=== PATIENT | male | born 1990 | race Caucasian/White ===

== ENCOUNTER 2024-10-20 06:02 | Emergency (ER) | payer SELFPAY ==
[~2024-10-20] VITALS: Ht 165.1 cm; Wt 76.7 kg
[2024-10-20 06:27] VITALS: TEMP 36.8; O2SAT 100
[2024-10-20] MEDS: TETRACAINE 0.5% OPHTH DROPS 4ML EACHEYE ONE (08:07)
[2024-10-20] MEDS: FLUORESCEIN SODIUM 1MG/STRIP BOTHEYE ONE (08:07)
[2024-10-20 08:41] VITALS: BP 122/94; PULSE 79; RESP 16; O2SAT 100
== END 2024-10-20 08:42 | disposition home or self-care (01) ==
LOC: ER 06:04
DX: T15.92XA Foreign body on external eye, part unspecified, left eye, initial encounter (principal); Y93.89 Activity, other specified; Y92.89 Other specified places as the place of occurrence of the external cause; Y99.8 Other external cause status
CPT/HCPCS: 65222; 99284; Z7610 ×2; 65220; 99283